=== PATIENT | female | born 1945 | race Caucasian/White ===

== ENCOUNTER → 2017-09-28 | Outpatient (CLI) | payer MEDICARE ==
[2017-09-28] MEDS: IOHEXOL 300 MG/ML 100ML VIAL. IV ×2 (10:00)
== END | disposition home or self-care (01) ==
LOC: CT 08:56
DX: K50.90 Crohn's disease, unspecified, without complications (principal); Z90.49 Acquired absence of other specified parts of digestive tract; Z87.891 Personal history of nicotine dependence
CPT/HCPCS: 74170; Q9967

== ENCOUNTER → 2018-03-29 | Outpatient (CLI) | payer MEDICARE ==
[~2018-03-29] MED LIST: ACET-704 PO; CONTRAST GIVEN. MC PRN; DENO60DI SQ; DICY20TA3 PO; HYDR30CR70 TP; IOHEXOL 240 MG/ML 50ML VIAL. PO ONE; IOHEXOL 300 MG/ML 100ML VIAL. IV ONE; LEVO100C PO; ONDA4TAB12 PO; POTA20TA82 PO; PRED2.5T PO; THYR60TA PO; VENL150C PO
--- NOTE | 2018-03-29 15:33 | RAD ---
CT of the abdomen and pelvis with contrast, 03/29/2018: HISTORY: Crohn's disease, abdominal pain, previous bowel resection Multidetector imaging was performed following oral and IV administration of contrast. The gallbladder is surgically absent. No hepatic abnormality is seen. The pancreas is unremarkable. Calcified granulomata are present in the spleen. The spleen is of normal size. No renal or adrenal abnormality is detected. There is moderate aortoiliac calcific plaquing. No retroperitoneal or pelvic adenopathy is seen. Several small mesenteric lymph nodes are noted without evidence of pathologic enlargement. The uterus is surgically absent. There are reduced number of small bowel loops compatible with the history of previous bowel resection. Some of the small bowel loops are at the upper limits of normal in size. No definite mural thickening is seen. Surgical clips are present right lower quadrant. The oral contrast material has reached the colon. There is a moderate amount of stool in the distal colon. No free air or free fluid is evident in the abdomen or pelvis. IMPRESSION: 1. Postsurgical changes. 2. No acute abdominal or pelvic abnormality is detected. PQRS Compliance Statement: One or more of the following individualized dose reduction techniques were utilized for this examination: 1. Automated exposure control 2. Adjustment of the mA and/or kV according to patient size 3. Use of iterative reconstruction technique Electronically signed by: Carrillo Izaguirre MD (03/29/2018 3:30 PM) [facility]
== END | disposition home or self-care (01) ==
LOC: CT 10:29
PROVIDERS: ATTEND Internal Medicine Gastroenterology
DX: K50.90 Crohn's disease, unspecified, without complications (principal); I70.0 Atherosclerosis of aorta; Z98.890 Other specified postprocedural states; Z87.891 Personal history of nicotine dependence; Z90.49 Acquired absence of other specified parts of digestive tract
CPT/HCPCS: 74177; Q9966; Q9967